=== PATIENT | male | born 1970 | race Two or more races ===

== ENCOUNTER 2022-05-22 17:27 | Emergency (ER) | payer SELFPAY ==
[~2022-05-22] VITALS: Ht 180.3 cm; Wt 86.0 kg
[2022-05-22] MEDS ORDERED: ASPirin 81 mg TAB PO ONE (17:45)
[2022-05-22 18:09] LABS: Basophils # (auto) 0.1 10 ^3/uL (0-0.2); Basophils % (auto) 0.5 % (0.0-2.0); Eosinophils # (auto) 0.3 10 ^3/uL (0-0.8); Eosinophils % (auto) 2.3 % (0.0-7.0); Hematocrit 38.5 % (41.0-53.0); Hemoglobin 13.1 g/dL (13.5-17.5); Lymphocytes # (auto) 3.9 10 ^3/uL (0.4-5.4); Lymphocytes % (auto) 34.9 % (10.0-50.0); Mean Corpuscular Hemoglobin 31.9 pg (28.0-32.0); Mean Corpuscular Hgb Conc. 34.1 g/dL (32.0-36.0); Mean Corpuscular Volume 93.5 fL (80.0-100.0); Monocytes # (auto) 0.6 10 ^3/uL (0-1.3); Monocytes % (auto) 5.7 % (0.0-12.0); Neutrophils # (auto) 6.4 10 ^3/uL (1.6-8.6); Neutrophils % (auto) 56.6 % (37.0-80.0); Nucleated Red Blood Cells % 0.2 %; Red Blood Cells 4.12 10^6/uL (4.5-5.90); Red Cell Distribution Width 13.7 % (11.8-14.3); White Blood Cell 11.3 10^3/uL (4.4-10.8)
[2022-05-22 18:26] LABS: Urine Bacteria NONE SEEN /hpf (None Seen); Urine Blood 1+ /uL (Negative); Urine Mucus FEW (None Seen); Urine Specific Gravity 1.025 (1.001-1.035); Urine WBC 1 /hpf (0 - 3)
[2022-05-22 18:31] LABS: Albumin 3.8 g/dL (3.4-5.0); BUN/Creatinine Ratio 19.8 (10.0-20.0); Magnesium 2.1 mg/dL (1.6-2.6); Potassium 4.4 mmol/L (3.5-5.1)
[2022-05-22 18:34] LABS: Bilirubin, Total 0.2 mg/dL (0.2-1.0); Total Protein 7.3 g/dL (6.4-8.2)
[2022-05-22 18:40] LABS: Amphetamine Screen, Urine NEGATIVE (NEGATIVE); Barbiturate Scree,Urine NEGATIVE (NEGATIVE); Benzodiazephine Screen, Urine NEGATIVE (NEGATIVE); Cannabinoid Screen, Urine NEGATIVE (NEGATIVE); Cocaine Screen, Urine NEGATIVE (NEGATIVE); Opiate Scree,Urine NEGATIVE (NEGATIVE); Phencyclidine Screen, Urine NEGATIVE (NEGATIVE)
[2022-05-22] MEDS ORDERED: IBUP400T22 PO (19:26)
[2022-05-22 22:45] VITALS: BP 168/83
== END 2022-05-22 22:52 | disposition home or self-care (01) ==
LOC: ER 17:27
DX: R07.89 Other chest pain (principal); Z88.6 Allergy status to analgesic agent; Z90.89 Acquired absence of other organs
CPT/HCPCS: 36415; 71046; 80053; 80307; 81001; 83735; 84484; 85025; 93005

== ENCOUNTER 2022-12-05 09:48 | Emergency (ER) | payer OTHER ==
[~2022-12-05] VITALS: Ht 180.3 cm; Wt 103.3 kg
[~2022-12-05 09:48] MED LIST: IBUP-1453 PO
[2022-12-05] MEDS ORDERED: CIPR0.3S67 OP (10:22)
[2022-12-05 10:23] VITALS: BP 157/94; PULSE 75; RESP 16; TEMP 97.3; O2SAT 98
== END 2022-12-05 10:37 | disposition home or self-care (01) ==
LOC: ER 09:48
DX: S05.01XA Injury of conjunctiva and corneal abrasion without foreign body, right eye, initial encounter (principal); Z90.89 Acquired absence of other organs; X58.XXXA Exposure to other specified factors, initial encounter; Y93.89 Activity, other specified; Y92.89 Other specified places as the place of occurrence of the external cause; Y99.8 Other external cause status